=== PATIENT | female | born 1985 | race Caucasian/White ===

== ENCOUNTER 2016-10-05 19:38 | Inpatient (IN) | payer MEDICAID, OTHER ==
[2016-10-05] VITALS (8 sets, daily range): BP systolic 111–150; BP diastolic 56–95; PULSE 71–102; RESP 16–26; TEMP 98.1; O2SAT 97–100
[~2016-10-05] VITALS: Ht 172.7 cm; Wt 133.5 kg
[2016-10-05] MEDS ORDERED: SODIUM CHLOR 0.9% 1000 ML INJ 1,000 ML IV SCH (19:45)
[2016-10-05] MEDS ORDERED: SODIUM CHLORIDE 0.9% FLUSH 10 ML FLUSH IVF PRN ×2 (19:45→20:30)
[2016-10-05] MEDS ORDERED: FOSPHENYTOIN INJ 1,000 MGPE in SODIUM CHLORIDE 0.9% INJ 50 ML IV ONE (19:45)
[2016-10-05] MEDS ORDERED: LORazepam 2 MG/ML VIAL IV PUSH ONE ×2 (19:45)
[2016-10-05] MEDS ORDERED: ETOMIDATE 40 MG/20 ML VIAL ONE (19:46)
--- NOTE | 2016-10-05 20:02 | PD ---
HPI Chief Complaint: seizure Time Seen by Provider: 19:41 Travel History International Travel<30 days: No Contact w/Intl Traveler<30days: No History of Present Illness HPI This is a patient who was brought into the emergency department having had a witnessed seizure at a support group. She reportedly has a history of bipolar disorder. The people at the support group did not know her and didn't have much information about her. Patient is able to say that she takes Keppra and she thinks she missed some doses. She had 6 seizures with EMS call lasting less than a minute described as generalized tonic-clonic. She received 4 mg of IV Ativan with EMS. PFSH Past Medical History Medical History: Unable to Obtain Social History Narrative Social History unknown Tobacco Use: No Allergies-Medications (Allergen,Severity, Reaction): Coded Allergies: UNOBTAINABLE (Unverified , 10/05/16) Reported Meds & Prescriptions Reported Meds & Active Scripts Active Active Prescriptions or Reported Medications Unobtainable Review of Systems ROS Limitations: Clinical Condition Physical Exam Narrative GENERAL: Somnolent, awakens and says her name SKIN: Focused skin assessment warm and dry. HEAD: Atraumatic. Normocephalic. EYES: Pupils equal and round. No injection or drainage. ENT: Moist mucous membranes NECK: Trachea midline. CARDIOVASCULAR: Tachycardic. No murmur appreciated. RESPIRATORY: Clear to auscultation. Breath sounds equal bilaterally. GASTROINTESTINAL: Abdomen soft, non-tender, nondistended. MUSCULOSKELETAL: No obvious deformities. NEUROLOGICAL: Sleepy but awakens to answer questions. No obvious cranial nerve deficits. Moving all extremities. Data Data Last Documented VS Vital Signs Date Time Temp Pulse Resp B/P Pulse Ox O2 Delivery O2 Flow Rate FiO2 10/05/16 21:04 74 16 111/56 100 Ventilator 15 35 10/05/16 20:00 98.1 Orders Fosphenytoin Inj (Cerebyx Inj) (10/05/16 19:45) Complete Blood Count With Diff (10/05/16 19:42) Alcohol (Ethanol) (10/05/16 19:42) Phenytoin (Dilantin) (10/05/16 19:42) Drug Screen, Random Urine (10/05/16 19:42) Blood Glucose (10/05/16 19:42) Ecg Monitoring (10/05/16 19:42) Iv Access Insert/Monitor (10/05/16 19:42) Oximetry (10/05/16 19:42) Comprehensive Metabolic Panel (10/05/16 19:42) Sodium Chloride 0.9% Flush (Ns Flush) (10/05/16 19:45) Sodium Chlor 0.9% 1000 Ml Inj (Ns 1000 M (10/05/16 19:45) Urinalysis - C+S If Indicated (10/05/16 19:43) Ed Urine Pregnancytest Poc (10/05/16 19:43) Lorazepam Inj (Ativan Inj) (10/05/16 19:45) Lorazepam Inj (Ativan Inj) (10/05/16 19:45) Etomidate Inj (Amidate Inj) (10/05/16 19:46) Ct Brain W/O Iv Contrast(Rout) (10/05/16 ) Propofol 1000 Mg/100 Ml Inj (Diprivan 10 (10/05/16 20:17) Chest, Single Ap (10/05/16 20:19) Arterial Blood Gas (Abg) (10/05/16 20:19) Ng Gastric Tube Insert/Monitor (10/05/16 20:19) Urinary Catheter Insert/Apply (10/05/16 20:19) Etomidate Inj (Amidate Inj) (10/05/16 20:30) Sodium Chloride 0.9% Flush (Ns Flush) (10/05/16 20:30) Restraints Non-Violent MARY BETH.Q3H (10/05/16 20:19) Rocuronium Inj (Zemuron Inj) (10/05/16 20:30) Hydromorphone Pf Inj (Dilaudid Pf Inj) (10/05/16 20:30) Sodium Chlor 0.9% 1000 Ml Inj (Ns 1000 M (10/05/16 20:30) Resp Ventilation- Volume (10/05/16 ) Midazolam 100 Mg/Ml Inj (Versed 100 Mg/M (10/05/16 21:15) Midazolam 100 Mg/Ml Inj (Versed 100 Mg/M (10/05/16 21:15) Urine Culture (10/05/16 20:40) Ceftriaxone Inj (Rocephin Inj) (10/05/16 21:30) Levetiracetam (10/05/16 21:23) Admit Order (Ed Use Only) (10/05/16 21:25) Labs Laboratory Tests Test 10/05/16 10/05/16 14:50 20:40 White Blood Count 12.2 TH/MM3 Red Blood Count 4.52 MIL/MM3 Hemoglobin 13.3 GM/DL Hematocrit 39.8 % Mean Corpuscular Volume 88.0 FL Mean Corpuscular Hemoglobin 29.3 PG Mean Corpuscular Hemoglobin 33.3 % Concent Red Cell Distribution Width 13.8 % Platelet Count 342 TH/MM3 Mean Platelet Volume 9.7 FL Neutrophils (%) (Auto) 66.3 % Lymphocytes (%) (Auto) 27.3 % Monocytes (%) (Auto) 4.9 % Eosinophils (%) (Auto) 0.7 % Basophils (%) (Auto) 0.8 % Neutrophils # (Auto) 8.1 TH/MM3 Lymphocytes # (Auto) 3.3 TH/MM3 Monocytes # (Auto) 0.6 TH/MM3 Eosinophils # (Auto) 0.1 TH/MM3 Basophils # (Auto) 0.1 TH/MM3 CBC Comment DIFF FINAL Differential Comment Sodium Level 140 MEQ/L Potassium Level 3.8 MEQ/L Chloride Level 109 MEQ/L Carbon Dioxide Level 22.8 MEQ/L Anion Gap 8 MEQ/L Blood Urea Nitrogen 13 MG/DL Creatinine 0.77 MG/DL Estimat Glomerular Filtration 65 ML/MIN Rate Random Glucose 87 MG/DL Calcium Level 7.7 MG/DL Total Bilirubin 0.5 MG/DL Aspartate Amino Transf 27 U/L (AST/SGOT) Alanine Aminotransferase 21 U/L (ALT/SGPT) Alkaline Phosphatase 73 U/L Total Protein 7.4 GM/DL Albumin 3.4 GM/DL Phenytoin (Dilantin) Level 0.9 MCG/ML Ethyl Alcohol Level LESS THAN 3 MG/DL Urine Color YELLOW Urine Turbidity HAZY Urine pH 6.5 Urine Specific [place] 1.023 Urine Protein TRACE mg/dL Urine Glucose (UA) NEG mg/dL Urine Ketones NEG mg/dL Urine Occult Blood NEG Urine Nitrite POS Urine Bilirubin NEG Urine Urobilinogen LESS THAN 2.0 MG/DL Urine Leukocyte Esterase SMALL Urine RBC LESS THAN 1 /hpf Urine WBC 5 /hpf Urine Squamous Epithelial 1 /hpf Cells Urine Bacteria MANY /hpf Urine Mucus MOD /lpf Microscopic Urinalysis Comment CATH-CULTURE IND Blood Gas Puncture Site RT RADIAL Blood Gas Patient Temperature 98.6 Blood Gas HCO3 22 mmol/L Blood Gas Base Excess -1.7 mmol/L Blood Gas Oxygen Saturation 98 % Arterial Blood pH 7.44 Arterial Blood Partial 33 mmHg Pressure CO2 Arterial Blood Partial 172 mmHG Pressure O2 Arterial Blood Oxygen Content 16.8 Vol % Arterial Blood 0.9 % Carboxyhemoglobin Arterial Blood Methemoglobin 0.7 % Blood Gas Hemoglobin 12.0 G/DL Oxygen Delivery Device VENTILATOR Blood Gas Ventilator Setting VAC16/500/PEEP5 Blood Gas Inspired Oxygen 50 % Urine Opiates Screen POS Urine Barbiturates Screen NEG Urine Amphetamines Screen NEG Urine Benzodiazepines Screen NEG Urine Cocaine Screen NEG Urine Cannabinoids Screen NEG MDM Medical Decision Making Medical Screen Exam Complete: Yes Emergency Medical Condition: Yes Interpretation(s) afebrile, tachycardic, tachypneic, hypertensive mild leukocytosis electrolytes are reassuring drug screen positive for opiates abg: reassuring urinalysis: urinary tract infection Differential Diagnosis Seizure, status epilepticus, alcohol withdrawal, delirium tremens, electrolyte abnormality Narrative Course This is a patient who presents to the emergency department having had multiple seizures with EMS. Upon arrival she continued to seize in the emergency department. She was given 8 mg total of IV Ativan. She was given a gram of fosphenytoin. She continued to seize so she was intubated and started on propofol. Despite propofol she continued to have intermittent seizures. I spoke to Dr. West who was on-call for neurology who recommended starting Versed. Patient will be admitted to the [facility] for further management. Critical Care Narrative Aggregate critical care time was 50 minutes. Time to perform other separately billable procedures was not included in the critical care time. My time did not include minutes spent treating any other patients simultaneously or on activities that did not directly contribute to the patient's treatment. The services I provided to this patient were to treat and/or prevent clinically significant deterioration that could result in: disability, I provided critical care services requiring my management, as noted below: Chart data review, documentation time, medication orders and management, vital sign assessments/reviewing monitor data, ordering and reviewing lab tests, ordering and interpreting/reviewing x-rays and diagnostic studies, care of the patient and discussion of the patient with the admitting physicians. Procedures Procedure Narrative After the risks and benefits were discussed the following procedure was performed: INTUBATION: The patient was put in optimal position for the procedure. Rapid sequence intubation was initiated by me using 20 milligrams of etomidate IV and 50 milligrams of rocuronium IV. The patient was intubated with a 7.0 cuffed endotracheal tube. Tube placement was confirmed by visualization of the tube and balloon passing through the cords, capnometry and subsequent chest x-ray. Breath sounds were equal and well aerated bilaterally postintubation. No breath sounds over stomach. Patient tolerated procedure well. Physician Communication Physician Communication Discussed with Dr. West and Dr. Crowe Diagnosis Primary Impression: Status epilepticus Admitting Information Admitting Physician Requests: Admit Scripts Unable to Obtain Active Prescriptions or Reported Meds Madie Jack MD Oct 05, 2016 20:02
[2016-10-05 20:06] LABS: AUTOMATED NEUTROPHIL # 8.1 TH/MM3 (1.8-7.7); BASOPHIL # 0.1 TH/MM3 (0-0.2); BASOPHIL % 0.8 % (0.0-2.0); EOSINOPHIL # 0.1 TH/MM3 (0-0.4); EOSINOPHIL % 0.7 % (0.0-4.0); HEMATOCRIT 39.8 % (35.0-46.0); HEMO FLAGS DIFF FINAL; LYMPH % 27.3 % (9.0-44.0); LYMPHOCYTE # 3.3 TH/MM3 (1.0-4.8); MEAN CORPUSCULAR HEMOGLOBIN 29.3 PG (27.0-34.0); MEAN CORPUSCULAR HGB CONC 33.3 % (32.0-36.0); MONO % 4.9 % (0.0-8.0); NEUT % 66.3 % (16.0-70.0); PLATELET COUNT 342 TH/MM3 (150-450); RED BLOOD COUNT 4.52 MIL/MM3 (4.00-5.30); RED CELL DISTRIBUTION WIDTH 13.8 % (11.6-17.2); WHITE BLOOD COUNT 12.2 TH/MM3 (4.0-11.0)
[2016-10-05] MEDS ORDERED: PROPOFOL 1000 MG/100 ML INJ 100 ML ONE (20:17)
[2016-10-05 20:23] LABS: ALT (GPT) 21 U/L (10-53)
[2016-10-05 20:26] LABS: ALKALINE PHOSPHATASE 73 U/L (45-117); TOTAL BILIRUBIN ADULT 0.5 MG/DL (0.2-1.0)
[2016-10-05 20:28] LABS: ANION GAP 8 MEQ/L (5-15); AST (GOT) 27 U/L (15-37); BICARBONATE 22.8 MEQ/L (21.0-32.0); BLOOD UREA NITROGEN 13 MG/DL (7-18); CHLORIDE 109 MEQ/L (98-107); GLOMERULAR FILTRATION RATE 65 ML/MIN (>89); SODIUM (NA) 140 MEQ/L (136-145)
[2016-10-05 20:29] LABS: POTASSIUM 3.8 MEQ/L (3.5-5.1)
[2016-10-05] MEDS ORDERED: ETOMIDATE 20 MG/10 ML VIAL IVP ONE (20:30)
[2016-10-05] MEDS ORDERED: HYDROmorphone HCL PF 1 MG/ML VIAL IV PUSH ONE (20:30)
[2016-10-05] MEDS ORDERED: ROCURONIUM INJ 50 MG/5 ML VIAL IV ONE (20:30)
[2016-10-05] MEDS ORDERED: SODIUM CHLOR 0.9% 1000 ML INJ 1,000 ML IV ONE (20:30)
--- NOTE | 2016-10-05 20:50 | RADRPT ---
EXAM DATE/TIME: 10/05/2016 20:24 [facility] COMPARISON: No previous studies available for comparison. INDICATIONS : Post intubation. MEDICAL HISTORY : None. SURGICAL HISTORY : None. ENCOUNTER: Initial ACUITY: 1 day PAIN SCORE: Non-responsive. LOCATION: Bilateral chest FINDINGS: ET tube nasogastric tube are in good position. The lungs are clear. The heart is minimally enlarged. The pulmonary vascularity is normal. There is n o evidence for infiltrate or failure. The portion of the bony skeleton visualized is unremarkable. CONCLUSION: ET tube in good position without significant failure. Board Certified Radiologist. This report was verified electronically.
[2016-10-05 20:56] LABS: BLOOD GAS BASE EXCESS -1.7 mmol/L (-2-2); BLOOD GAS CARBOXYHEMOGLOBIN 0.9 % (0-4); BLOOD GAS HCO3 22 mmol/L (22-26); BLOOD GAS METHEMOGLOBIN 0.7 % (0-2); BLOOD GAS O2 HGB SATURATION 98 % (90-100); BLOOD GAS OXYGEN CONTENT 16.8 Vol % (12.0-20.0); BLOOD GAS PCO2 33 mmHg (38-42); BLOOD GAS PO2 172 mmHG (61-120); CRITICAL VALUE NO; DRAW SITE RT RADIAL; FIO2 50 %; NUMBER OF ARTERIAL PUNCTURES 1; OXYGEN DEVICE VENTILATOR; STAT YES; TEMP CORR TO 98.6; ULNAR PULSE PRESENT; VENT SETTINGS VAC16/500/PEEP5
[2016-10-05 21:09] LABS: BACTERIA, URINE MANY /hpf; BLOOD, URINE NEG (NEG); GLUCOSE,URINE NEG (NEG); KETONE, URINE NEG (NEG); MUCUS URINE MOD /lpf (OCC); PH, URINE 6.5 (5.0-8.5); SQUAMOUS EPITHELIAL CELL URINE 1 /hpf (0-5); URINE COLOR YELLOW (YELLW/STRAW)
[2016-10-05 21:13] LABS: AMPHETAMINE, URINE NEG (NEG); BARBITURATES, URINE NEG (NEG); COCAINE, URINE NEG (NEG)
[2016-10-05] MEDS ORDERED: MIDAZOLAM 100 MG/ML INJ 100 ML ONE (21:15)
[2016-10-05] MEDS ORDERED: MIDAZOLAM 100 MG/ML INJ 100 ML IV SCH (21:15)
[2016-10-05 21:16] LABS: COMMENT (UR) CATH-CULTURE IND; CULTURE IF INDICATED CATH CULTURE IND; NITRITE,URINE POS (NEG)
[2016-10-05] MEDS ORDERED: cefTRIAXone INJ 1,000 MG in SODIUM CHLORIDE 0.9% INJ 100 ML IV ONE (21:30)
[2016-10-05] MEDS ORDERED: MIDAZOLAM HCL 5 MG/ML VIAL (1 ML) ONE (21:57)
--- NOTE | 2016-10-05 22:21 | EKG ---
Date Performed: 10/05/2016 Time Performed: 19:43:31 PTAGE: 89 years EKG: SINUS TACHYCARDIA ABNORMAL RHYTHM ECG NO PREVIOUS TRACING DOCTOR: Sebas Caba Interpretating Date/Time 10/05/2016 22:21:18
[2016-10-05] MEDS ORDERED: CHLORHEXIDINE GLUCONATE 2 % 1 PACK (2 CLOTHS) TOP PRN (22:30)
[2016-10-05] MEDS ORDERED: BISACODYL 10 MG SUPP RECTAL PRN (22:30)
[2016-10-05] MEDS ORDERED: MIDAZOLAM HCL 2 MG/2 ML VIAL IV PUSH ONE (22:30)
[2016-10-05] MEDS ORDERED: fentaNYL DRIP 250 ML IV SCH (22:30)
[2016-10-05] MEDS ORDERED: MIDAZOLAM HCL 2 MG/2 ML VIAL IV PRN (22:30)
[2016-10-05] MEDS ORDERED: RESP: ALBUTEROL 2.5 MG/IPRATROPIUM 0.5 MG NEB (PRN) INH (22:30)
[2016-10-05] MEDS ORDERED: ONDANSETRON HCL 4 MG/2 ML VIAL IV PRN (22:30)
[2016-10-05] MEDS ORDERED: PROCHLORPERAZINE 25 MG SUPP RECTAL PRN (22:30)
[2016-10-05] MEDS ORDERED: MISCELLANEOUS NURSING INFORMATION XX SCH (22:30)
[2016-10-05] MEDS ORDERED: LACTULOSE SYRUP 20 GM/30 ML CUP PO PRN (22:30)
[2016-10-05] MEDS ORDERED: SENNOSIDES 8.6 MG TAB PO PRN (22:30)
[2016-10-05] MEDS ORDERED: ACETAMINOPHEN 325 MG TAB PO PRN (22:30)
[2016-10-05] MEDS ORDERED: METOCLOPRAMIDE HCL 10 MG/2 ML VIAL IV PRN (22:30)
[2016-10-05] MEDS ORDERED: MAGNESIUM HYDROXIDE SUSP 30 ML CUP PO PRN (22:30)
[2016-10-05] MEDS ORDERED: SODIUM CHLORIDE 0.9% FLUSH 10 ML FLUSH PRN (22:30)
--- NOTE | 2016-10-05 22:36 | RADRPT ---
EXAM DATE/TIME: 10/05/2016 22:13 [facility] COMPARISON: CHEST SINGLE AP, October 05, 2016, 20:24. INDICATIONS : Central line placement MEDICAL HISTORY : Unobtainable SURGICAL HISTORY : Unobtainable ENCOUNTER: Initial ACUITY: 1 day PAIN SCORE: Non-responsive. LOCATION: Bilateral chest FINDINGS: Support apparatus including central line in good position. The central line does appear to be kinked at the clavicle. Lungs are clear. There is no pneumothorax. CONCLUSION: Line in good position without pneumothorax. Line may be kinked at the clavicle. José Luis Guzman MD FACR on October 05, 2016 at 22:33 Board Certified Radiologist. This report was verified electronically.
[2016-10-05] MEDS: ENOXAPARIN SODIUM 40 MG/0.4 ML SYRINGE SQ SCH (23:35)
[2016-10-05] MEDS: PROPOFOL 1000 MG/100 ML INJ 100 ML IV SCH (23:35)
[2016-10-05] MEDS: SODIUM CHLOR 0.9% 1000 ML INJ 1,000 ML IV SCH (23:35)
[2016-10-06] VITALS (29 sets, daily range): BP systolic 119–154; BP diastolic 63–88; PULSE 58–85; RESP 16–23; TEMP 96.5–98.4; O2SAT 98–100
[2016-10-06] MEDS: levETIRAcetam INJ 500 MG in SODIUM CHLORIDE 0.9% INJ 100 ML IV SCH ×5 (00:01→23:05)
[2016-10-06] MEDS: FOSPHENYTOIN INJ 100 MGPE in SODIUM CHLORIDE 0.9% INJ 50 ML IV SCH ×3 (00:01→16:16)
--- NOTE | 2016-10-06 00:38 | HHI.HP ---
HPI Service Critical Care Medicine Primary Care Physician Unknown Admission Diagnosis status epilepticus Diagnosis: Travel History International Travel<30 Days: No Contact w/Intl Traveler <30 Da: No Traveled to Known Affected Are: No History of Present Illness Young female patient who was brought into the emergency department having had a witnessed seizure at a support group. 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 The people at the support group did not know her and didn't have much information about her. Patient was able to say that she has been taking Keppra and she thought she has missed some doses. She had 6 seizures with EMS call lasting less than a minute described as generalized tonic -clonic. She received 4 mg of IV Ativan with EMS. She had another seizure- like episodes in the emergency department and was intubated by ED attending for an airway protection. Review of Systems ROS Unobtainable patient is sedated and intubated Past Family Social History Allergies: Coded Allergies: UNOBTAINABLE (Unverified , 10/05/16) Past Medical History Bipolar disorder Pseudoseizures Past Surgical History Unobtainable Reported Medications Reported Meds & Active Scripts Active Active Prescriptions or Reported Medications Unobtainable Active Ordered Medications Current Medications Medications (Trade) Dose Ordered Sig/David Route PRN Reason Start Time Stop Time Status Last Admin Dose Admin Fosphenytoin Sodium 100 mgpe 100 mgpe Q8HR IV 10/05/16 22:30 10/06/16 00:00 Levetriacetam 500 mg/Sodium Chloride 105 ml @ 420 mls/hr Q6HR IV 10/06/16 00:00 10/06/16 00:01 Sodium Chloride (NS 1000 ml Inj) 1,000 ml @ 124 mls/hr Q8H4M IV 10/05/16 22:26 10/05/16 23:35 Sodium Chloride (NS Flush) 2 ml UNSCH PRN .XX FLUSH AFTER USING IV ACCESS 10/05/16 22:30 Sodium Chloride (NS Flush) 2 ml BID .XX 10/06/16 09:00 Acetaminophen (Tylenol) 650 mg Q6H PRN PO PAIN 1-10 AND/OR FEVER >101F 10/05/16 22:30 Famotidine (Pepcid) 20 mg Q12HR PO 10/06/16 09:00 Midazolam HCl (Versed Inj) 2 mg Q1H PRN IV SEDATION 10/05/16 22:30 Ondansetron HCl (Zofran Inj) 4 mg Q6H PRN IV NAUSEA OR VOMITING 10/05/16 22:30 Metoclopramide HCl (Reglan Inj) 10 mg Q6H PRN IV NAUSEA OR VOMITING 10/05/16 22:30 Prochlorperazine (Compazine Supp) 25 mg Q12H PRN RECTAL NAUSEA OR VOMITING 10/05/16 22:30 Enoxaparin Sodium (Lovenox Inj) 40 mg Q24H SQ 10/05/16 23:00 10/05/16 23:35 Miscellaneous Information 1 Q361D XX 10/05/16 22:30 Chlorhexidine Gluconate (Chlorhexidine 2% Cloth) 3 pack Taper DAILY@04 TOP 10/06/16 04:00 10/02/17 03:59 Chlorhexidine Gluconate (Chlorhexidine 2% Cloth) 3 pack UNSCH PRN TOP HYGIENIC CARE 10/05/16 22:30 Senna/Docusate Sodium (Micaela-Colace) 1 tab BID PO 10/06/16 09:00 Magnesium Hydroxide (Milk Of Magnesia Liq) 30 ml Q12H PRN PO MILD - MODERATE CONSTIPATION 10/05/16 22:30 Sennosides (Senokot) 17.2 mg Q12H PRN PO MODERATE - SEVERE CONSTIPATION 10/05/16 22:30 Bisacodyl (Dulcolax Supp) 10 mg DAILY PRN RECTAL SEVERE CONSITIPATION 10/05/16 22:30 Lactulose 30 ml 30 ml DAILY PRN PO SEVERE CONSITIPATION 10/05/16 22:30 Propofol 100 ml @ 0 mls/hr TITRATE IV 10/05/16 22:30 10/05/16 23:35 Midazolam HCl 100 ml @ 0 mls/hr TITRATE IV 10/05/16 22:30 Fentanyl Citrate 250 ml @ 0 mls/hr TITRATE IV 10/05/16 22:30 Fosphenytoin Sodium/Sodium Chloride (Cerebyx Inj/NS Inj) 52 ml @ 208 mls/hr Q8H IV 10/06/16 00:00 10/06/16 00:01 Family History Unobtainable Social History Unobtainable Physical Exam Vital Signs Vital Signs Date Time Temp Pulse Resp B/P Pulse Ox O2 Delivery O2 Flow Rate FiO2 10/05/16 23:00 86 16 132/85 100 Auto-Vent 35 10/05/16 21:48 71 16 134/72 99 Ventilator 15 30 10/05/16 21:04 74 16 111/56 100 Ventilator 15 35 10/05/16 20:46 82 16 100 Auto-Vent 100 10/05/16 20:31 100 Ventilator 35 10/05/16 20:28 35 10/05/16 20:27 101 16 150/90 100 Ventilator 35 10/05/16 20:10 100 50 10/05/16 20:00 98.1 73 20 145/83 97 Nasal Cannula 3 10/05/16 19:40 98.1 102 26 148/95 100 Physical Exam GENERAL: Obese well-developed patient. SKIN: Warm and dry. HEAD: Normocephalic. EYES: No scleral icterus. No injection or drainage. NECK: Supple, trachea midline. No JVD or lymphadenopathy. CARDIOVASCULAR: Regular rate and rhythm without murmurs, gallops, or rubs. RESPIRATORY: Breath sounds equal bilaterally. No accessory muscle use. GASTROINTESTINAL: Abdomen soft, non-tender, nondistended. MUSCULOSKELETAL: No cyanosis, or edema. BACK: Nontender without obvious deformity. No CVA tenderness. EXTREMITIES: No clubbing cyanosis or edema Laboratory Laboratory Tests Test 10/05/16 10/05/16 14:50 20:40 White Blood Count 12.2 Red Blood Count 4.52 Hemoglobin 13.3 Hematocrit 39.8 Mean Corpuscular Volume 88.0 Mean Corpuscular Hemoglobin 29.3 Mean Corpuscular Hemoglobin 33.3 Concent Red Cell Distribution Width 13.8 Platelet Count 342 Mean Platelet Volume 9.7 Neutrophils (%) (Auto) 66.3 Lymphocytes (%) (Auto) 27.3 Monocytes (%) (Auto) 4.9 Eosinophils (%) (Auto) 0.7 Basophils (%) (Auto) 0.8 Neutrophils # (Auto) 8.1 Lymphocytes # (Auto) 3.3 Monocytes # (Auto) 0.6 Eosinophils # (Auto) 0.1 Basophils # (Auto) 0.1 CBC Comment DIFF FINAL Differential Comment Sodium Level 140 Potassium Level 3.8 Chloride Level 109 Carbon Dioxide Level 22.8 Anion Gap 8 Blood Urea Nitrogen 13 Creatinine 0.77 Estimat Glomerular Filtration 65 Rate Random Glucose 87 Calcium Level 7.7 Total Bilirubin 0.5 Aspartate Amino Transf 27 (AST/SGOT) Alanine Aminotransferase 21 (ALT/SGPT) Alkaline Phosphatase 73 Total Protein 7.4 Albumin 3.4 Phenytoin (Dilantin) Level 0.9 Ethyl Alcohol Level LESS THAN 3 Urine Color YELLOW Urine Turbidity HAZY Urine pH 6.5 Urine Specific [place] 1.023 Urine Protein TRACE Urine Glucose (UA) NEG Urine Ketones NEG Urine Occult Blood NEG Urine Nitrite POS Urine Bilirubin NEG Urine Urobilinogen LESS THAN 2.0 Urine Leukocyte Esterase SMALL Urine RBC LESS THAN 1 Urine WBC 5 Urine Squamous Epithelial 1 Cells Urine Bacteria MANY Urine Mucus MOD Microscopic Urinalysis Comment CATH-CULTURE IND Blood Gas Puncture Site RT RADIAL Blood Gas Patient Temperature 98.6 Blood Gas HCO3 22 Blood Gas Base Excess -1.7 Blood Gas Oxygen Saturation 98 Arterial Blood pH 7.44 Arterial Blood Partial 33 Pressure CO2 Arterial Blood Partial 172 Pressure O2 Arterial Blood Oxygen Content 16.8 Arterial Blood 0.9 Carboxyhemoglobin Arterial Blood Methemoglobin 0.7 Blood Gas Hemoglobin 12.0 Oxygen Delivery Device VENTILATOR Blood Gas Ventilator Setting VAC16/500/PEEP5 Blood Gas Inspired Oxygen 50 Urine Opiates Screen POS Urine Barbiturates Screen NEG Urine Amphetamines Screen NEG Urine Benzodiazepines Screen NEG Urine Cocaine Screen NEG Urine Cannabinoids Screen NEG Date/Time Procedure Status Source Growth 10/05/16 20:40 Urine Culture Received Urine Catheterized Urine Pending Result Diagram: 10/05/16 1450 10/05/16 1450 Imaging Last 24 hours Impressions Chest X-Ray 10/05/16 2019 Signed Impressions: Service Date/Time: Wednesday, October 05, 2016 20:24 - CONCLUSION: ET tube in good position without significant failure. Board Certified Radiologist. This report was verified electronically. Assessment and Plan Assessment and Plan Respiratory failure - Intubated for an airway protection - Chest x-ray and ABG daily - Extubate if EEG negative Seizure/pseudoseizure - Patient's significant other "patient has a history of nonconvulsive disorder - EEG - Evaluation per neurology - Lactic acid and CPK - Loaded with fosphenytoin and Keppra in the ED - Ativan when necessary - Propofol DVT GI prophylaxis - Lovenox and Pepcid Critical Care: The total critical care time was 35 minutes. Time to perform other separately billable procedures was not included in the critical care time. Raimundo Crowe MD Oct 06, 2016 00:38
--- NOTE | 2016-10-06 00:39 | PD.PROCEDR ---
Procedure Note Procedure Centerline placement A time-out was completed verifying correct patient, procedure, site, positioning , and special equipment if applicable. The patient was placed in a dependent position appropriate for central line placement based on the vein to be cannulated. The patients right shoulder was prepped and draped in sterile fashion. 1% Lidocaine was used to anesthetize the surrounding skin area. A triple lumen 9-[place] Cordis catheter was introduced into the the right subclavian vein using the Seldinger technique. The catheter was threaded smoothly over the guide wire and appropriate blood return was obtained. Each lumen of the catheter was evacuated of air and flushed with sterile saline. The catheter was then sutured in place to the skin and a sterile dressing applied. Perfusion to the extremity distal to the point of catheter insertion was checked and found to be adequate. Estimated Blood Loss: 1ml The patient tolerated the procedure well and there were no complications. Raimundo Crowe MD Oct 06, 2016 00:39
--- NOTE | 2016-10-06 02:22 | RADRPT ---
EXAM DATE/TIME: 10/06/2016 01:39 [facility] COMPARISON: No previous studies available for comparison. INDICATIONS : Altered mental status. RADIATION DOSE: 48.54 CTDIvol (mGy) MEDICAL HISTORY : Non-responsive. SURGICAL HISTORY : Non-responsive. ENCOUNTER: Initial ACUITY: 1 day PAIN SCALE: Non-responsive LOCATION: cranial TECHNIQUE: Multiple contiguous axial images were obtained of the head. Using automated exposure control and adj ustment of the mA and/or kV according to patient size, radiation dose was kept as low as reasonably a chievable to obtain optimal diagnostic quality images. DICOM format image data is available electro nically for review and comparison. FINDINGS: CEREBRUM: The ventricles are normal for age. No evidence of midline shift, mass lesion, hemorrhage or acute in farction. No extra-axial fluid collections are seen. POSTERIOR FOSSA: The cerebellum and brainstem are intact. The 4th ventricle is midline. The cerebellopontine angle i s unremarkable. EXTRACRANIAL: The visualized portion of the orbits is intact. SKULL: The calvaria is intact. No evidence of skull fracture. CONCLUSION: No acute intracranial findings. Christopher Farris MD on October 06, 2016 at 2:18 Board Certified Radiologist. This report was verified electronically.
[2016-10-06 03:09] LABS: BLOOD GAS BASE EXCESS -2.4 mmol/L (-2-2); BLOOD GAS CARBOXYHEMOGLOBIN 1.2 % (0-4); BLOOD GAS HCO3 21 mmol/L (22-26); BLOOD GAS METHEMOGLOBIN 1.3 % (0-2); BLOOD GAS O2 HGB SATURATION 97 % (90-100); BLOOD GAS OXYGEN CONTENT 15.9 Vol % (12.0-20.0); BLOOD GAS PCO2 33 mmHg (38-42); BLOOD GAS PO2 177 mmHg (61-120); BLOOD GAS TOTAL HGB 11.4 G/DL (12.0-16.0); CRITICAL VALUE NO; OXYGEN DEVICE VENT; TEMP CORR TO 98.6
[2016-10-06 03:10] LABS: DRAW SITE RT RADIAL; FIO2 35 %; NUMBER OF ARTERIAL PUNCTURES 2; STAT NO; ULNAR PULSE PRESENT; VENT SETTINGS SEE COMMENTS
[2016-10-06] MEDS: CHLORHEXIDINE GLUCONATE 2 % 1 PACK (2 CLOTHS) TOP SCH (04:00)
[2016-10-06 05:30] LABS: BASOPHIL % 0.3 % (0.0-2.0); EOSINOPHIL # 0.1 TH/MM3 (0-0.4); EOSINOPHIL % 0.9 % (0.0-4.0); HEMATOCRIT 33.8 % (35.0-46.0); HEMO FLAGS DIFF FINAL; LYMPH % 23.7 % (9.0-44.0); MEAN CELL VOLUME 87.6 FL (80.0-100.0); MEAN CORPUSCULAR HEMOGLOBIN 29.3 PG (27.0-34.0); MEAN CORPUSCULAR HGB CONC 33.5 % (32.0-36.0); MONO % 5.7 % (0.0-8.0); NEUT % 69.4 % (16.0-70.0); PLATELET COUNT 265 TH/MM3 (150-450); RED BLOOD COUNT 3.86 MIL/MM3 (4.00-5.30); RED CELL DISTRIBUTION WIDTH 13.6 % (11.6-17.2); WHITE BLOOD COUNT 8.7 TH/MM3 (4.0-11.0)
[2016-10-06 05:49] LABS: ANION GAP 8 MEQ/L (5-15); AST (GOT) 14 U/L (15-37); BICARBONATE 23.2 MEQ/L (21.0-32.0); BLOOD UREA NITROGEN 11 MG/DL (7-18); CHLORIDE 110 MEQ/L (98-107); GLOMERULAR FILTRATION RATE 91 ML/MIN (>89); MAGNESIUM 1.8 MG/DL (1.5-2.5); SODIUM (NA) 141 MEQ/L (136-145)
[2016-10-06 05:53] LABS: ALKALINE PHOSPHATASE 66 U/L (45-117); ALT (GPT) 17 U/L (10-53); TOTAL BILIRUBIN ADULT 0.4 MG/DL (0.2-1.0)
[2016-10-06] MEDS: PROPOFOL 1000 MG/100 ML INJ 100 ML IV SCH ×6 (06:34→19:23)
[2016-10-06] MEDS: FOSPHENYTOIN SODIUM 100 MG PE/2 ML VIAL IV SCH ×2 (06:35)
[2016-10-06] MEDS: SODIUM CHLOR 0.9% 1000 ML INJ 1,000 ML IV SCH ×2 (06:42→15:50)
[2016-10-06] MEDS: DOCUSATE SODIUM 50 MG/SENNA 8.6 MG TAB PO SCH ×2 (07:56→23:05)
[2016-10-06] MEDS: SODIUM CHLORIDE 0.9% FLUSH 10 ML FLUSH SCH ×2 (07:56→23:07)
[2016-10-06] MEDS ORDERED: FAMOTIDINE 20 MG TAB PO SCH (09:00)
--- NOTE | 2016-10-06 09:30 | MB ---
cc: MEI BATEMAN M.D. DATE OF CONSULTATION: 10/05/2016 REASON FOR CONSULTATION Status epilepticus. HISTORY OF PRESENT ILLNESS This is a patient who has history of bipolar disorder. Apparently, does have a history of seizures which she takes Keppra. She was at a support group and had a witnessed seizure. It was felt that she may have missed some doses of Keppra. She had a total of six seizures here in the ER, she was having frequent seizures and was given 4 mg of IV Ativan with EMS with continuous seizing. She was loaded with fosphenytoin 1 gram but continued to seize. She was intubated and started on propofol. She continued to have intermittent seizures on propofol. She received 4 mg of IV Versed and then stopped seizing. Central line was not placed. NEUROLOGIC EXAMINATION VITAL SIGNS: Blood pressure 134/72, pulse 71, respirations 16, temperature is 98.1 degrees. Higher cortical function, she is sedated, nonresponsive. Cranial nerves: The pupils are 1 mm symmetric, they both react. The extraocular movements are intact. On motor exam, she does have spontaneous movement of both upper and lower extremities and does have withdrawal of both lower extremities equally. I do not see any tonic-clonic activity. She has no nystagmus. No sign of clinical seizures at the present. Reflexes symmetric. LABORATORY DATA The white count is 12,200, hemoglobin 13.3, hematocrit 39.8%, platelets 342,000. Sodium is 140, potassium 3.8, chloride 109, CO2 22.8, the BUN is 13, creatinine 0.77, GFR 65, AST 27, ALT is 21. IMPRESSION Status epilepticus, now resolved. RECOMMENDATIONS Would recommend continue the patient on propofol. I will continue her as well on maintenance Cerebyx as well as a maintenance Keppra. If she were to have any recurrent seizures would recommend starting continuous Versed drip. Will obtain an EEG in the morning as well as CT of the brain. MD BENJIE Pyle/CESAR /10:23 PM /9:23 AM
--- NOTE | 2016-10-06 13:48 | HHI.CCPN ---
Subjective Remarks/Hospital Course Young female patient who was brought into the emergency department having had a witnessed seizure at a support group. 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 The people at the support group did not know her and didn't have much information about her. Patient was able to say that she has been taking Keppra and she thought she has missed some doses. She had 6 seizures with EMS call lasting less than a minute described as generalized tonic -clonic. She received 4 mg of IV Ativan with EMS. She had another seizure- like episodes in the emergency department and was intubated by ED attending for an airway protection. Subjective 10/06 - patient did awaken not following commands. Pulled out NG tube. Neurology recommending keeping sedate overnight with repeat CT head EEG in a.m. Objective Vital Signs Date Time Temp Pulse Resp B/P Pulse Ox O2 Delivery O2 Flow Rate FiO2 10/06/16 13:25 100 35 10/06/16 08:00 68 10/06/16 04:00 96.5 16 126/77 10/06/16 01:27 Auto-Vent 10/05/16 21:48 15 Intake and Output 10/05/16 10/05/16 10/06/16 08:00 16:00 00:00 Intake Total 1000 ml Balance 1000 ml Result Diagram: 10/06/16 0445 10/06/16 0509 Other Results Microbiology Date/Time Procedure Status Source Growth 10/05/16 20:40 Urine Culture Worksheet Urine Catheterized Urine Pending Imaging Last 72 hours Impressions Chest X-Ray 10/05/162018 Signed Impressions: Service Date/Time: Wednesday, October 05, 2016 20:24 - CONCLUSION: ET tube in good position without significant failure. Board Certified Radiologist. This report was verified electronically. Head CT 10/05/16 0000 Signed Impressions: Service Date/Time: September 01:39 - CONCLUSION: No acute intracranial findings. Christopher Farris MD Chest X-Ray 10/05/16 0000 Signed Impressions: Service Date/Time: Wednesday, October 05, 2016 22:13 - CONCLUSION: Line in good position without pneumothorax. Line may be kinked at the clavicle. José Luis Guzman MD FACR Objective Remarks GENERAL: 31-year-old female, currently orotracheally intubated SKIN: Warm and dry. No rash HEAD: Normocephalic. EYES: No scleral icterus. No injection or drainage. NECK: Supple, trachea midline. No JVD or lymphadenopathy. CARDIOVASCULAR: Regular rate and rhythm with S1, S2 no S4. Without murmurs, gallops, or rubs. RESPIRATORY: Breath sounds equal bilaterally. No accessory muscle use. GASTROINTESTINAL: Abdomen soft, non-tender, nondistended. MUSCULOSKELETAL: No cyanosis, or edema. BACK: Nontender without obvious deformity. No CVA tenderness. EXTREMITIES: No clubbing cyanosis or edema Urinary Catheter: Yes Assessment to: Continue Patton insert reason: Prolonged Immobilization Vascular Central Line Catheter: Yes Assessment to: Continue Date of Insertion: Oct 06, 2016 Line: Central Venous Catheter Side: Right Location: Subclavian A/P Assessment and Plan Neuro/Psych: Psychogenic nonepileptic seizures Bipolar type I Anxiety/depression History of migraine headache CT head revealed no acute intrarenal findings Followed by Dr. West/neurology Keppra 500 IV every 6 hours and Dilantin 100 mg IV every 8 hours. Loaded with Dilantin ED. Recheck levels in AM. Follow-up CT head/EEG in a.m. per neurology's recommendations CV: Currently on normal saline at 100 cc an hour. Not requiring vasopressors and/or anti-hypertensives Resp: Acute respiratory failure secondary to AMS ACV 68153/5/35 Ventilator bundle As needed DuoNeb every 2 hours. Dyspnea Spontaneous breathing trials in a.m. GI: OG tube to LIWS Protonix for GI prophylaxis Micaela-Colace for bowel regimen : Patton catheter for accurate I's and O's in a critically ill patient Endo: Sliding-scale insulin if indicated to maintain euglycemia Follow-up on TSH Renal: Creatinine currently within normal limits Accurate I's and O's Monitor urine output Follow BMP in a.m. Heme: History of cervical cancer/endometriosis Normocytic anemia Monitor CBC daily. Follow trends ID: History of HSV History of BV Cystitis Received Rocephin in ED. We'll Start Ancef 1 G IV Every 12 Hours for 3 Days FEN: Hypokalemia Hypophosphatemia Hypo-magnesium 60 mEq KCl IV/by mouth now, 1 g Neutra-Phos by NG tube and 2 g mag sulfate IV 1 now. Recheck in AM. Currently on normal saline at 100 cc an hour MSK: PT evaluate and treat when appropriate Access - Utilize right subclavian placed 10/[address] Crowe Prophylaxis - GI - Protonix - DVT - SCD/Lovenox 30 additional minutes critical care time Stuart Sanders MD Oct 06, 2016 13:48
[2016-10-06] MEDS ORDERED: POTASSIUM CHLOR 40 MEQ PREMIX 100 ML IV ONE (14:15)
[2016-10-06] MEDS ORDERED: POTASSIUM CHLORIDE 20 MEQ PWD PACKET PO ONE (14:15)
[2016-10-06] MEDS ORDERED: POTASSIUM PHOSPHATE/SODIUM PHOSPHATE 250 MG TAB DOBHOFF ONE (14:15)
[2016-10-06] MEDS: MAGNESIUM SULFATE 1 GM PREMIX 100 ML IV SCH ×2 (14:16→16:14)
[2016-10-06] MEDS: PANTOPRAZOLE SODIUM 40 MG VIAL IV PUSH SCH (14:16)
[2016-10-06 15:14] LABS: BETA HCG QUANT LESS THAN 1 MIU/ML (0-5)
[2016-10-06] MEDS: ENOXAPARIN SODIUM 40 MG/0.4 ML SYRINGE SQ SCH (23:05)
[2016-10-06] MEDS: MIDAZOLAM 100 MG/ML INJ 100 ML IV SCH (23:32)
[2016-10-07] VITALS (23 sets, daily range): BP systolic 116–141; BP diastolic 61–87; PULSE 70–88; RESP 16–30; TEMP 96.7–99.9; O2SAT 99–100
[2016-10-07] MEDS: FOSPHENYTOIN INJ 100 MGPE in SODIUM CHLORIDE 0.9% INJ 50 ML IV SCH ×4 (00:35→23:18)
[2016-10-07] MEDS: PROPOFOL 1000 MG/100 ML INJ 100 ML IV SCH ×9 (01:29→23:38)
[2016-10-07] MEDS: SODIUM CHLOR 0.9% 1000 ML INJ 1,000 ML IV SCH ×3 (01:30→15:53)
[2016-10-07] MEDS: CHLORHEXIDINE GLUCONATE 2 % 1 PACK (2 CLOTHS) TOP SCH (04:00)
[2016-10-07 05:32] LABS: AUTOMATED NEUTROPHIL # 8.9 TH/MM3 (1.8-7.7); BASOPHIL % 0.3 % (0.0-2.0); EOSINOPHIL # 0.1 TH/MM3 (0-0.4); EOSINOPHIL % 1.1 % (0.0-4.0); HEMATOCRIT 33.7 % (35.0-46.0); HEMO FLAGS DIFF FINAL; LYMPHOCYTE # 1.6 TH/MM3 (1.0-4.8); MEAN CELL VOLUME 87.8 FL (80.0-100.0); MEAN CORPUSCULAR HEMOGLOBIN 29.4 PG (27.0-34.0); MEAN CORPUSCULAR HGB CONC 33.5 % (32.0-36.0); MONO % 5.9 % (0.0-8.0); NEUT % 78.7 % (16.0-70.0); PLATELET COUNT 273 TH/MM3 (150-450); RED BLOOD COUNT 3.83 MIL/MM3 (4.00-5.30); RED CELL DISTRIBUTION WIDTH 13.6 % (11.6-17.2); WHITE BLOOD COUNT 11.3 TH/MM3 (4.0-11.0)
[2016-10-07] MEDS: levETIRAcetam INJ 500 MG in SODIUM CHLORIDE 0.9% INJ 100 ML IV SCH ×4 (06:00→23:18)
[2016-10-07 06:17] LABS: ALKALINE PHOSPHATASE 72 U/L (45-117); ALT (GPT) 14 U/L (10-53); AMYLASE 27 U/L (25-115); ANION GAP 8 MEQ/L (5-15); AST (GOT) 12 U/L (15-37); BICARBONATE 24.9 MEQ/L (21.0-32.0); BLOOD UREA NITROGEN 3 MG/DL (7-18); CHLORIDE 110 MEQ/L (98-107); GLOMERULAR FILTRATION RATE 120 ML/MIN (>89); MAGNESIUM 2.2 MG/DL (1.5-2.5); SODIUM (NA) 143 MEQ/L (136-145); TOTAL BILIRUBIN ADULT 0.5 MG/DL (0.2-1.0)
[2016-10-07 06:27] LABS: CREATINE KINASE 51 U/L (26-192)
[2016-10-07 06:29] LABS: POTASSIUM 2.9 MEQ/L (3.5-5.1)
[2016-10-07] MEDS ORDERED: POTASSIUM PHOSPHATE INJ 15 MMOL in SODIUM CHLORIDE 0.9% INJ 150 ML IV ONE (07:00)
[2016-10-07] MEDS: POTASSIUM CHLOR 40 MEQ PREMIX 100 ML IV SCH ×2 (07:33→10:51)
[2016-10-07] MEDS: SODIUM CHLORIDE 0.9% FLUSH 10 ML FLUSH SCH ×2 (09:56→20:47)
[2016-10-07] MEDS: DOCUSATE SODIUM 50 MG/SENNA 8.6 MG TAB PO SCH ×2 (10:12→20:47)
[2016-10-07] MEDS ORDERED: DEXTROSE 50% IN WATER 50 ML SYRINGE IV PUSH ONE (12:45)
[2016-10-07] MEDS: PANTOPRAZOLE SODIUM 40 MG VIAL IV PUSH SCH (13:22)
--- NOTE | 2016-10-07 14:02 | HHI.CCPN ---
Subjective Remarks/Hospital Course 31-year-old female patient who was brought into the emergency department having had a witnessed seizure at a support group. 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 The people at the support group did not know her and didn't have much information about her. Patient was able to say that she has been taking Keppra and she thought she has missed some doses. She had 6 seizures with EMS call lasting less than a minute described as generalized tonic-clonic. She received 4 mg of IV Ativan with EMS. She had another seizure-like episodes in the emergency department and was intubated by ED attending for an airway protection. 10/06 - patient did awaken not following commands. Pulled out NG tube. Neurology recommending keeping sedate overnight with repeat CT head EEG in a.m. Subjective 10/07: Currently afebrile. On sedation vacation awake and following simple commands. EEG completed today. CT head pendingwhich will attempt extubation. Objective Vital Signs Date Time Temp Pulse Resp B/P Pulse Ox O2 Delivery O2 Flow Rate FiO2 10/07/16 12:00 35 10/07/16 12:00 80 10/07/16 12:00 99.4 17 132/70 100 10/06/16 01:27 Auto-Vent 10/05/16 21:48 15 Intake and Output 10/06/16 10/06/16 10/06/16 07:59 15:59 23:59 Intake Total 981 ml 1261 ml 1927 ml Output Total 220 ml 3000 ml 1575 ml Balance 761 ml -1739 ml 352 ml Result Diagram: 10/07/16 0510 10/07/16 0510 Other Results Microbiology Date/Time Procedure Status Source Growth 10/05/16 20:40 Urine Culture - Final Complete Urine Catheterized Urine Escherichia Coli Imaging Last 72 hours Impressions Chest X-Ray 10/05/162018 Signed Impressions: Service Date/Time: Wednesday, October 05, 2016 20:24 - CONCLUSION: ET tube in good position without significant failure. Board Certified Radiologist. This report was verified electronically. Head CT 10/05/16 0000 Signed Impressions: Service Date/Time: September 01:39 - CONCLUSION: No acute intracranial findings. Christopher Farris MD Chest X-Ray 10/05/16 0000 Signed Impressions: Service Date/Time: Wednesday, October 05, 2016 22:13 - CONCLUSION: Line in good position without pneumothorax. Line may be kinked at the clavicle. José Luis Guzman MD FACR Objective Remarks GENERAL: 31-year-old female, currently orotracheally intubated SKIN: Warm and dry. No rash HEAD: Normocephalic. EYES: No scleral icterus. No injection or drainage. NECK: Supple, trachea midline. No JVD or lymphadenopathy. CARDIOVASCULAR: Regular rate and rhythm with S1, S2 no S4. Without murmurs, gallops, or rubs. RESPIRATORY: Breath sounds equal bilaterally. No accessory muscle use. GASTROINTESTINAL: Abdomen soft, non-tender, nondistended. MUSCULOSKELETAL: No significant peripheral edema. BACK: Nontender without obvious deformity. No CVA tenderness. NEURO: Cranial nerves II through XII grossly intact. Positive gag. Positive corneal reflex. Withdrawals to pain in all 4 extremities Date of Insertion: Oct 06, 2016 Line: Central Venous Catheter Side: Right Location: Subclavian A/P Assessment and Plan Neuro/Psych: Psychogenic nonepileptic seizures Bipolar type I Anxiety/depression History of migraine headache CT head revealed no acute intrarenal findings Followed by Dr. West/neurology Keppra 500 IV every 6 hours and Dilantin 100 mg IV every 8 hours. Loaded with Dilantin ED. Recheck levels in AM 6.5. Follow-up CT head/EEG today per neurology's recommendations CV: Currently on normal saline at 100 cc an hour. Not requiring vasopressors and/or anti-hypertensives Resp: Acute respiratory failure secondary to AMS ACV 98017/5/35 Ventilator bundle As needed DuoNeb every 2 hours. Dyspnea Spontaneous breathing trials after head CT today GI: Hypoalbuminemia OG tube to LIWS. Initiate tube feedings on extubated Protonix for GI prophylaxis Micaela-Colace for bowel regimen : Patton catheter for accurate I's and O's in a critically ill patient Endo: Sliding-scale insulin if indicated to maintain euglycemia Follow-up on TSH was within normal limits Renal: Creatinine currently within normal limits Accurate I's and O's Monitor urine output Follow BMP in a.m. Heme: History of cervical cancer/endometriosis Normocytic anemia Monitor CBC daily. Follow trends ID: History of HSV History of BV Cystitis/Escherichia coli Received Rocephin in ED. We'll Start Ancef 1 G IV Every 12 Hours for 3 Days a currently day #23 FEN: Hypokalemia Hypo-magnesium 80 mEq KCl IV/1 now, 1 g Neutra-Phos by NG tube. Recheck in AM. Currently on normal saline at 100 cc an hour MSK: PT evaluate and treat when appropriate Access - Utilize right subclavian placed 10/[address] Crowe Prophylaxis - GI - Protonix - DVT - SCD/Lovenox 30 additional minutes critical care time Stuart Sanders MD Oct 07, 2016 14:02
--- NOTE | 2016-10-07 14:42 | MG ---
cc: WYATT ANDRADE Lab No: [id number] Date: 10/07/16 Age: 31 Sex: F Race: On Diprivan. Breakthrough seizures, pseudoseizures, Dilantin. A diffuse 15 Hz, 60 microvolt rhythm is noted with some diffuse delta slowing also. No epileptiform or seizure activity is noted. Hyperventilation not performed. Photic stimulation is performed without significant posterior driving. IMPRESSION A generally unremarkable EEG. Beyond medication effect I do not see any focal abnormalities. No seizure activity is seen. Diffuse slowing seen at times, likely medication effect. MD LYDIA NewmanM/ANKITA /2:28 PM /2:41 PM
[2016-10-07] MEDS: MIDAZOLAM 100 MG/ML INJ 100 ML IV SCH (15:53)
[2016-10-07] MEDS ORDERED: DEXTROSE 50% IN WATER 50 ML VIAL(D50) IV ONE (19:00)
[2016-10-07] MEDS: ENOXAPARIN SODIUM 40 MG/0.4 ML SYRINGE SQ SCH (23:17)
[2016-10-08] VITALS (16 sets, daily range): BP systolic 123–137; BP diastolic 69–92; PULSE 62–112; RESP 11–21; TEMP 97.5–100; O2SAT 92–100
[2016-10-08] MEDS: SODIUM CHLOR 0.9% 1000 ML INJ 1,000 ML IV SCH ×2 (00:18→12:40)
[2016-10-08] MEDS: PROPOFOL 1000 MG/100 ML INJ 100 ML IV SCH ×2 (02:28→06:00)
[2016-10-08] MEDS: CHLORHEXIDINE GLUCONATE 2 % 1 PACK (2 CLOTHS) TOP SCH (04:00)
[2016-10-08 05:27] LABS: HEMATOCRIT 31.8 % (35.0-46.0); MEAN CELL VOLUME 88.1 FL (80.0-100.0); MEAN CORPUSCULAR HEMOGLOBIN 30.1 PG (27.0-34.0); MEAN CORPUSCULAR HGB CONC 34.2 % (32.0-36.0); PLATELET COUNT 242 TH/MM3 (150-450); RED BLOOD COUNT 3.61 MIL/MM3 (4.00-5.30); RED CELL DISTRIBUTION WIDTH 13.7 % (11.6-17.2); REVIEW FLAG FINAL; WHITE BLOOD COUNT 10.9 TH/MM3 (4.0-11.0)
[2016-10-08 05:49] LABS: BICARBONATE 25.8 MEQ/L (21.0-32.0); MAGNESIUM 1.8 MG/DL (1.5-2.5)
--- NOTE | 2016-10-08 06:03 | RADRPT ---
EXAM DATE/TIME: 10/08/2016 05:31 [facility] COMPARISON: CT BRAIN W/O CONTRAST, October 06, 2016, 1:39. INDICATIONS : Seizures. RADIATION DOSE: 52.13 CTDIvol (mGy) MEDICAL HISTORY : Non-responsive. SURGICAL HISTORY : Non-responsive. ENCOUNTER: Subsequent ACUITY: 2 days PAIN SCALE: Non-responsive LOCATION: cranial TECHNIQUE: Multiple contiguous axial images were obtained of the head. Using automated exposure control and adj ustment of the mA and/or kV according to patient size, radiation dose was kept as low as reasonably a chievable to obtain optimal diagnostic quality images. DICOM format image data is available electro nically for review and comparison. FINDINGS: CEREBRUM: The ventricles are normal for age. No evidence of midline shift, mass lesion, hemorrhage or acute in farction. No extra-axial fluid collections are seen. POSTERIOR FOSSA: The cerebellum and brainstem are intact. The 4th ventricle is midline. The cerebellopontine angle i s unremarkable. EXTRACRANIAL: The visualized portion of the orbits is intact. SKULL: The calvaria is intact. No evidence of skull fracture. CONCLUSION: Normal examination for a patient of this age. Mike Shay MD on October 08, 2016 at 6:00 Board Certified Radiologist. This report was verified electronically.
[2016-10-08] MEDS: levETIRAcetam INJ 500 MG in SODIUM CHLORIDE 0.9% INJ 100 ML IV SCH ×4 (06:07→23:58)
[2016-10-08] MEDS ORDERED: MAGNESIUM SULFATE INJ 4 GM in SODIUM CHLORIDE 0.9% INJ 92 ML IV PRN (06:45)
[2016-10-08] MEDS ORDERED: POTASSIUM PHOSPHATE INJ 30 MMOL in SODIUM CHLOR 0.9% 250 ML INJ 250 ML IV PRN (06:45)
[2016-10-08] MEDS ORDERED: POTASSIUM CHLOR 20 MEQ PREMIX 100 ML IV PRN ×2 (06:45)
[2016-10-08] MEDS ORDERED: POTASSIUM PHOSPHATE MONOBASIC 500 MG TAB PO PRN (06:45)
[2016-10-08] MEDS ORDERED: SODIUM PHOSPHATE INJ 30 MMOL in SODIUM CHLOR 0.9% 250 ML INJ 240 ML IV PRN (06:45)
[2016-10-08] MEDS ORDERED: MAGNESIUM OXIDE 400 MG TAB PO PRN (06:45)
[2016-10-08] MEDS ORDERED: POTASSIUM PHOSPHATE MONOBASIC 500 MG TAB PO/TUBE PRN (06:45)
[2016-10-08] MEDS ORDERED: POTASSIUM CHLOR 40 MEQ PREMIX 100 ML IV PRN ×2 (06:45)
[2016-10-08] MEDS ORDERED: MAGNESIUM SULFATE INJ 2 GM in SODIUM CHLORIDE 0.9% INJ 96 ML IV PRN (06:45)
[2016-10-08] MEDS ORDERED: POTASSIUM CHLORIDE 25 MEQ EFFERVESCENT TAB PO PRN (06:45)
[2016-10-08] MEDS: DOCUSATE SODIUM 50 MG/SENNA 8.6 MG TAB PO SCH ×2 (07:57→20:32)
[2016-10-08] MEDS: FOSPHENYTOIN INJ 100 MGPE in SODIUM CHLORIDE 0.9% INJ 50 ML IV SCH ×3 (07:57→23:59)
--- NOTE | 2016-10-08 08:08 | HHI.CCPN ---
Subjective Remarks/Hospital Course 31-year-old female patient who was brought into the emergency department having had a witnessed seizure at a support group. 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 The people at the support group did not know her and didn't have much information about her. Patient was able to say that she has been taking Keppra and she thought she has missed some doses. She had 6 seizures with EMS call lasting less than a minute described as generalized tonic-clonic. She received 4 mg of IV Ativan with EMS. She had another seizure-like episodes in the emergency department and was intubated by ED attending for an airway protection. 10/06 - patient did awaken not following commands. Pulled out NG tube. Neurology recommending keeping sedate overnight with repeat CT head EEG in a.m. 10/07: Currently afebrile. On sedation vacation awake and following simple commands. EEG completed today. CT head pendingwhich will attempt extubation. Subjective 10/08: Afebrile. Negative CT head. EEG negative. More awake and alert. We' ll attempt extubation today. Objective Vital Signs Date Time Temp Pulse Resp B/P Pulse Ox O2 Delivery O2 Flow Rate FiO2 10/08/16 07:10 100 35 10/08/16 06:00 66 10/08/16 05:20 8.00 10/08/16 04:00 98.1 16 133/79 10/06/16 01:27 Auto-Vent Intake and Output 10/07/16 10/07/16 10/08/16 08:00 16:00 00:00 Intake Total 1152 ml 2104 ml 1346 ml Output Total 1450 ml 1325 ml 1975 ml Balance -298 ml 779 ml -629 ml Result Diagram: 10/08/16 0505 10/08/16 0505 Other Results Microbiology Date/Time Procedure Status Source Growth 10/05/16 20:40 Urine Culture - Final Complete Urine Catheterized Urine Escherichia Coli Imaging Last [address] 10/07/16 0600 Signed Impressions: Service Date/Time: Saturday, October 08, 2016 05:31 - CONCLUSION: Normal examination for a patient of this age. Mike Shay MD Chest X-Ray 10/05/16 2019 Signed Impressions: Service Date/Time: Wednesday, October 05, 2016 20:24 - CONCLUSION: ET tube in good position without significant failure. Board Certified Radiologist. This report was verified electronically. Objective Remarks GENERAL: 31-year-old female, currently orotracheally intubated SKIN: Warm and dry. No rash HEAD: Normocephalic. EYES: No scleral icterus. No injection or drainage. NECK: Supple, trachea midline. No JVD or lymphadenopathy. CARDIOVASCULAR: Regular rate and rhythm with S1, S2 no S4. Without murmurs, gallops, or rubs. RESPIRATORY: Breath sounds equal bilaterally. No accessory muscle use. GASTROINTESTINAL: Abdomen soft, non-tender, nondistended. MUSCULOSKELETAL: No significant peripheral edema. BACK: Nontender without obvious deformity. No CVA tenderness. NEURO: Cranial nerves II through XII grossly intact. Positive gag. Positive corneal reflex. Withdrawals to pain in all 4 extremities Vascular Central Line Catheter: Yes Assessment to: Continue Date of Insertion: Oct 06, 2016 Line: Central Venous Catheter Side: Right Location: Subclavian A/P Assessment and Plan Neuro/Psych: Psychogenic nonepileptic seizures Bipolar type I Anxiety/depression History of migraine headache CT head revealed no acute intrarenal findings Followed by Dr. West/neurology Keppra 500 IV every 6 hours and Dilantin 100 mg IV every 8 hours. Loaded with Dilantin ED. Recheck levels in AM 6.6. Follow-up CT head revealed no acute intracranial findings/EEG 10/07 revealed no epileptiform activity. Generalized slowing likely medication induced Per neurology's recommendations CV: Currently on normal saline at 100 cc an hour. Not requiring vasopressors and/or anti-hypertensives Resp: Acute respiratory failure secondary to AMS ACV 42917/5/35 Ventilator bundle As needed DuoNeb every 2 hours. Dyspnea Spontaneous breathing trials after head CT today GI: Hypoalbuminemia OG tube to LIWS. Initiate tube feedings if not extubated today Protonix for GI prophylaxis Micaela-Colace for bowel regimen : Patton catheter for accurate I's and O's in a critically ill patient Endo: Sliding-scale insulin if indicated to maintain euglycemia Follow-up on TSH was within normal limits Renal: Creatinine currently within normal limits Accurate I's and O's Monitor urine output Follow BMP in a.m. Heme: History of cervical cancer/endometriosis Normocytic anemia Monitor CBC daily. Follow trends ID: History of HSV History of BV Cystitis/Escherichia coli Received Rocephin in ED. We'll Start Ancef 1 G IV Every 12 Hours for 3 Days a currently day # #3 FEN: Hypokalemia Hypo-magnesium Hypophosphatemia Replaced per ICU electrolyte protocol today. Recheck potassium phosphorus 1800 Currently on normal saline at 100 cc an hour MSK: PT evaluate and treat when appropriate Access - Utilize right subclavian placed 10/[address] Crowe Prophylaxis - GI - Protonix - DVT - SCD/Lovenox level III Stuart Sanders MD Oct 08, 2016 08:08
[2016-10-08] MEDS: MAGNESIUM SULFATE 1 GM PREMIX 100 ML IV SCH ×2 (10:27→12:44)
[2016-10-08] MEDS: MORPHINE SULFATE 4 MG/ML INJ IV PUSH PRN ×2 (10:29→13:43)
[2016-10-08] MEDS ORDERED: MAGNESIUM SULFATE 1 GM PREMIX 100 ML ONE (12:42)
[2016-10-08] MEDS: SODIUM CHLORIDE 0.9% FLUSH 10 ML FLUSH SCH ×2 (12:44→20:32)
--- NOTE | 2016-10-08 14:25 | PD.TRANSFR ---
Transfer Summary Admission Date Oct 05, 2016 at 21:26 Transfer Date: Oct 08, 2016 Admitting Diagnosis status epilepticus Diagnoses: (1) Psychogenic nonepileptic seizure Diagnosis: Principal Significant Findings CT head revealed no acute intracranial planes. EEG negative Transfer Summary/Subjective Please see below Objective Vital Signs Date Time Temp Pulse Resp B/P Pulse Ox O2 Delivery O2 Flow Rate FiO2 10/08/16 12:00 107 10/08/16 08:47 96 Nasal Cannula 3.00 10/08/16 07:10 35 10/08/16 04:00 98.1 16 133/79 Intake and Output 10/07/16 10/07/16 10/07/16 07:59 15:59 23:59 Intake Total 1152 ml 2104 ml 1346 ml Output Total 1450 ml 1325 ml 1975 ml Balance -298 ml 779 ml -629 ml Result Diagram: 10/08/16 0505 10/08/16 0505 Other Results Microbiology Date/Time Procedure Status Source Growth 10/05/16 20:40 Urine Culture - Final Complete Urine Catheterized Urine Escherichia Coli Imaging Last [address] 10/07/16 0600 Signed Impressions: Service Date/Time: Saturday, October 08, 2016 05:31 - CONCLUSION: Normal examination for a patient of this age. Mike Shay MD Chest X-Ray 10/05/162018 Signed Impressions: Service Date/Time: Wednesday, October 05, 2016 20:24 - CONCLUSION: ET tube in good position without significant failure. Board Certified Radiologist. This report was verified electronically. Objective Remarks GENERAL: 31-year-old female, currently orotracheally intubated SKIN: Warm and dry. No rash HEAD: Normocephalic. EYES: No scleral icterus. No injection or drainage. NECK: Supple, trachea midline. No JVD or lymphadenopathy. CARDIOVASCULAR: Regular rate and rhythm with S1, S2 no S4. Without murmurs, gallops, or rubs. RESPIRATORY: Breath sounds equal bilaterally. No accessory muscle use. GASTROINTESTINAL: Abdomen soft, non-tender, nondistended. MUSCULOSKELETAL: No significant peripheral edema. BACK: Nontender without obvious deformity. No CVA tenderness. NEURO: Cranial nerves II through XII grossly intact. Positive gag. Positive corneal reflex. Withdrawals to pain in all 4 extremities Date of Insertion: Oct 06, 2016 Line: Central Venous Catheter Side: Right Location: Subclavian A/P Assessment and Plan Neuro/Psych: Psychogenic nonepileptic seizures Bipolar type I Anxiety/depression History of migraine headache CT head revealed no acute intrarenal findings Followed by Dr. West/neurology Keppra 500 IV every 6 hours and Dilantin 100 mg IV every 8 hours. Loaded with Dilantin ED. Recheck levels in AM 6.6. Follow-up CT head revealed no acute intracranial findings/EEG 10/07 revealed no epileptiform activity. Generalized slowing likely medication induced Per neurology's recommendations CV: Currently on normal saline at 100 cc an hour. Not requiring vasopressors and/or anti-hypertensives Resp: Acute respiratory failure secondary to AMS ACV 28748/5/35 Ventilator bundle As needed DuoNeb every 2 hours. Dyspnea Spontaneous breathing trials after head CT today GI: Hypoalbuminemia OG tube to LIWS. Initiate tube feedings if not extubated today Protonix for GI prophylaxis Micaela-Colace for bowel regimen : Patton catheter for accurate I's and O's in a critically ill patient Endo: Sliding-scale insulin if indicated to maintain euglycemia Follow-up on TSH was within normal limits Renal: Creatinine currently within normal limits Accurate I's and O's Monitor urine output Follow BMP in a.m. Heme: History of cervical cancer/endometriosis Normocytic anemia Monitor CBC daily. Follow trends ID: History of HSV History of BV Cystitis/Escherichia coli Received Rocephin in ED. We'll Start Ancef 1 G IV Every 12 Hours for 3 Days a currently day # #3 FEN: Hypokalemia Hypo-magnesium Hypophosphatemia Replaced per ICU electrolyte protocol today. Recheck potassium phosphorus 1800 Currently on normal saline at 100 cc an hour MSK: PT evaluate and treat when appropriate Access - Utilize right subclavian placed 10/[address] Crowe Prophylaxis - GI - Protonix - DVT - SCD/Lovenox level III Stuart Sanders MD Oct 08, 2016 14:25
[2016-10-08] MEDS: PANTOPRAZOLE SODIUM 40 MG VIAL IV PUSH SCH (14:36)
[2016-10-08] MEDS: PROMETHAZINE INJ 25 MG/ML VIAL IV-CENTRAL PRN (15:00)
[2016-10-08] MEDS ORDERED: PHEN-430 PO (16:54)
[2016-10-08] MEDS ORDERED: ZOLP5TAB3 PO (16:54)
[2016-10-08] MEDS ORDERED: SUMA50TA2 PO (16:54)
[2016-10-08] MEDS ORDERED: ESCI20TA PO (16:54)
[2016-10-08] MEDS ORDERED: HYDR-3583 PO (16:54)
[2016-10-08] MEDS ORDERED: ESCI10TA PO (16:54)
[2016-10-08] MEDS ORDERED: ACETAMINOPHEN 325 MG TAB PO PRN (18:00)
[2016-10-08 18:57] LABS: POTASSIUM 3.3 MEQ/L (3.5-5.1)
[2016-10-08] MEDS ORDERED: GABA800T PO (19:17)
[2016-10-08] MEDS ORDERED: DIPH25CA PO (19:19)
[2016-10-08] MEDS: ACETAMINOPHEN/HYDROcodone 325 MG/5 MG TAB PO PRN (20:32)
[2016-10-08] MEDS: ENOXAPARIN SODIUM 40 MG/0.4 ML SYRINGE SQ SCH (23:57)
[2016-10-09] VITALS: BP 111/59; PULSE 100; RESP 18; TEMP 97.8; O2SAT 93
[2016-10-09] MEDS: SODIUM CHLOR 0.9% 1000 ML INJ 1,000 ML IV SCH
[2016-10-09] MEDS: PROMETHAZINE INJ 25 MG/ML VIAL IV-CENTRAL PRN ×2 (03:36→14:06)
[2016-10-09] MEDS: CHLORHEXIDINE GLUCONATE 2 % 1 PACK (2 CLOTHS) TOP SCH (03:37)
[2016-10-09 04:23] LABS: AUTOMATED NEUTROPHIL # 4.7 TH/MM3 (1.8-7.7); BASOPHIL % 0.6 % (0.0-2.0); EOSINOPHIL # 0.4 TH/MM3 (0-0.4); EOSINOPHIL % 5.5 % (0.0-4.0); HEMATOCRIT 31.4 % (35.0-46.0); HEMO FLAGS DIFF FINAL; LYMPH % 29.7 % (9.0-44.0); LYMPHOCYTE # 2.4 TH/MM3 (1.0-4.8); MEAN CELL VOLUME 88.6 FL (80.0-100.0); MEAN CORPUSCULAR HEMOGLOBIN 30.1 PG (27.0-34.0); MONO % 6.3 % (0.0-8.0); NEUT % 57.9 % (16.0-70.0); PLATELET COUNT 261 TH/MM3 (150-450); RED BLOOD COUNT 3.55 MIL/MM3 (4.00-5.30); RED CELL DISTRIBUTION WIDTH 13.4 % (11.6-17.2); WHITE BLOOD COUNT 8.1 TH/MM3 (4.0-11.0)
[2016-10-09 05:13] LABS: ALT (GPT) 21 U/L (10-53); ANION GAP 7 MEQ/L (5-15); AST (GOT) 23 U/L (15-37); BICARBONATE 25.7 MEQ/L (21.0-32.0); BLOOD UREA NITROGEN 4 MG/DL (7-18); CHLORIDE 111 MEQ/L (98-107); GLOMERULAR FILTRATION RATE 133 ML/MIN (>89); MAGNESIUM 1.9 MG/DL (1.5-2.5); POTASSIUM 3.5 MEQ/L (3.5-5.1); SODIUM (NA) 144 MEQ/L (136-145)
[2016-10-09 05:15] LABS: ALKALINE PHOSPHATASE 69 U/L (45-117); TOTAL BILIRUBIN ADULT 0.3 MG/DL (0.2-1.0)
[2016-10-09] MEDS: levETIRAcetam INJ 500 MG in SODIUM CHLORIDE 0.9% INJ 100 ML IV SCH (05:43)
[2016-10-09 08:00] VITALS: BP 115/59; PULSE 83; RESP 17; TEMP 97.8; O2SAT 94
[2016-10-09] MEDS: FOSPHENYTOIN INJ 100 MGPE in SODIUM CHLORIDE 0.9% INJ 50 ML IV SCH (08:50)
[2016-10-09] MEDS: SODIUM CHLORIDE 0.9% FLUSH 10 ML FLUSH SCH ×2 (08:51→20:49)
[2016-10-09] MEDS: DOCUSATE SODIUM 50 MG/SENNA 8.6 MG TAB PO SCH ×2 (08:51→20:47)
[2016-10-09] MEDS: POTASSIUM PHOSPHATE MONOBASIC 500 MG TAB PO SCH ×2 (08:51→20:47)
[2016-10-09 12:00] VITALS: BP 121/68; PULSE 93; RESP 17; TEMP 98.1; O2SAT 93
[2016-10-09] MEDS ORDERED: LEVE500 PO ×2 (12:44→15:41)
[2016-10-09] MEDS: levETIRAcetam 500 MG TAB PO SCH (13:49)
[2016-10-09] MEDS: ACETAMINOPHEN/HYDROcodone 325 MG/5 MG TAB PO PRN ×2 (14:35→20:48)
[2016-10-09] MEDS ORDERED: K-PHTAB PO (15:41)
--- NOTE | 2016-10-09 15:41 | HHI.DCPOC ---
Discharge Care Plan Diagnosis: (1) Psychogenic nonepileptic seizure Your Health Problems Are: Difficulty with ADL Exercise Tolerance Goals to Promote Your Health * To prevent worsening of your condition and complications * To maintain your health at the optimal level Directions to Meet Your Goals Take your medications as prescribed Follow your dietary instruction Follow activity as directed Keep your appointments as scheduled Take your immunizations and boosters as scheduled If your symptoms worsen call your PCP, if no PCP go to Urgent Care Center or Emergency Room Smoking is Dangerous to Your Health. Avoid second hand smoke Call the 24-hour hour crisis hotline for domestic abuse at Sammy Mancia MD Oct 09, 2016 15:41
[2016-10-09] MEDS ORDERED: ESCITALOPRAM OXALATE 20 MG TAB PO SCH (15:45)
--- NOTE | 2016-10-09 15:49 | HHI.PR ---
Subjective Remarks Consulted by critical care medicine for transfer care medical management. Chart reviewed. Patient was admitted to ICU secondary to seizure and developed acute respiratory failure secondary to encephalopathy. She was intubated and subsequently extubated now tolerating room air. She also was started on IV Cerebryx and Keppra. EEG negative. Per critical care medicine notes, patient has psychogenic nonepileptic seizure. No recurrence of seizure despite subtherapeutic Dilantin levels. Patient reports she is on Keppra 500 mg daily. States she is doing okay complains of slight nausea but no headache, dizziness , numbness and focal weakness. She wants to go home. She also has been treated for Escherichia coli UTI with cefazolin IV. She will request Patton catheter to be discontinued. Objective Vitals Vital Signs Date Time Temp Pulse Resp B/P Pulse Ox O2 Delivery O2 Flow Rate FiO2 10/09/16 12:00 98.1 93 17 121/68 93 10/09/16 08:00 97.8 83 17 115/59 94 10/09/16 00:00 97.8 100 18 111/59 93 10/08/16 20:00 97.5 81 18 123/69 98 10/08/16 18:00 104 10/08/16 16:00 112 10/08/16 16:00 98.9 112 11 134/92 94 I/O 10/08/16 10/08/16 10/08/16 10/09/16 10/09/16 10/09/16 06:59 14:59 22:59 06:59 14:59 22:59 Intake Total 891 ml 1119 ml 1180 ml 1113 ml Output Total 350 ml 1600 ml 1800 ml 300 ml Balance 541 ml -481 ml -620 ml 813 ml Intake Oral 240 ml 120 ml IV Total 891 ml 1119 ml 940 ml 993 ml Output Urine Total 350 ml 1600 ml 1800 ml 300 ml # Bowel Movements 0 0 Result Diagram: 10/09/16 0345 10/09/16344 Imaging Last Impressions Head CT 10/07/16 0600 Signed Impressions: Service Date/Time: Saturday, October 08, 2016 05:31 - CONCLUSION: Normal examination for a patient of this age. Mike Shay MD Chest X-Ray 10/05/16 2019 Signed Impressions: Service Date/Time: Wednesday, October 05, 2016 20:24 - CONCLUSION: ET tube in good position without significant failure. Board Certified Radiologist. This report was verified electronically. Objective Remarks GENERAL: Well-developed, obese in no distress SKIN: Warm and dry. HEAD: Atraumatic. Normocephalic. EYES: Pupils equal and round. No scleral icterus. No injection or drainage. ENT: No nasal bleeding or discharge. Mucous membranes pink and moist. NECK: Trachea midline. No JVD. CARDIOVASCULAR: Regular rate and rhythm. RESPIRATORY: No accessory muscle use. Clear to auscultation. Breath sounds equal bilaterally. GASTROINTESTINAL: Abdomen soft, non-tender, nondistended. MUSCULOSKELETAL: Extremities without clubbing, cyanosis, or edema. No obvious deformities. NEUROLOGICAL: Awake and alert. No obvious cranial nerve deficits. Motor grossly within normal limits. Five out of 5 muscle strength in the arms and legs. Normal speech. PSYCHIATRIC: Appropriate mood and affect; insight and judgment normal. Procedures Central line placement Date of Insertion: Oct 06, 2016 Line: Central Venous Catheter Side: Right Location: Subclavian A/P Problem List: (1) Psychogenic nonepileptic seizure ICD Code: F44.5 Status: Acute Assessment and Plan Patient was admitted to ICU secondary to seizure and developed acute respiratory failure secondary to encephalopathy. She was intubated and subsequently extubated now tolerating room air. She also was started on IV Cerebryx and Keppra. EEG negative. Per critical care medicine notes, patient has psychogenic nonepileptic seizure. No recurrence of seizure despite subtherapeutic Dilantin levels. Patient reports she is on Keppra 500 mg daily. States she is doing okay complains of slight nausea but no headache, dizziness , numbness and focal weakness. She wants to go home. We'll discontinue IV Cerebryx and Keprra and restart home Keppra, seizure precautions She also has been treated for Escherichia coli UTI with cefazolin IV. Discontinue antibiotic as she completed course already. She will request Patton catheter to be discontinued. Normocytic normochromic anemia. Outpatient follow-up History of depression and right lower extremity neuropathy. Restart home medications Discontinue central line Discharge Planning Stable for discharge Sammy Mancia MD Oct 09, 2016 15:48
--- NOTE | 2016-10-09 15:51 | HHI.DS ---
Discharge Summary Admission Date Oct 05, 2016 at 21:26 Discharge Date: Oct 10, 2016 Admitting Diagnosis status epilepticus (1) Psychogenic nonepileptic seizure ICD Code: F44.5 Diagnosis: Principal Procedures Central line placement Brief History - From Admission Young female patient who was brought into the emergency department having had a witnessed seizure at a support group. 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 The people at the support group did not know her and didn't have much information about her. Patient was able to say that she has been taking Keppra and she thought she has missed some doses. She had 6 seizures with EMS call lasting less than a minute described as generalized tonic -clonic. She received 4 mg of IV Ativan with EMS. She had another seizure- like episodes in the emergency department and was intubated by ED attending for an airway protection. CBC/BMP: 10/09/16 0345 10/09/16 0345 Significant Findings Laboratory Tests Test 10/07/16 10/07/16 10/08/16 10/08/16 05:10 18:00 05:05 17:30 White Blood Count 11.3 TH/MM3 (4.0-11.0) Red Blood Count 3.83 MIL/MM3 3.61 MIL/MM3 (4.00-5.30) (4.00-5.30) Hemoglobin 11.3 GM/DL 10.9 GM/DL (11.6-15.3) (11.6-15.3) Hematocrit 33.7 % 31.8 % (35.0-46.0) (35.0-46.0) Neutrophils (%) (Auto) 78.7 % (16.0-70.0) Neutrophils # (Auto) 8.9 TH/MM3 (1.8-7.7) Potassium Level 2.9 MEQ/L 3.4 MEQ/L 3.0 MEQ/L 3.3 MEQ/L (3.5-5.1) (3.5-5.1) (3.5-5.1) (3.5-5.1) Chloride Level 110 MEQ/L 110 MEQ/L (98-107) (98-107) Blood Urea Nitrogen 3 MG/DL (7-18) 3 MG/DL (7-18) Calcium Level 7.8 MG/DL 7.7 MG/DL (8.5-10.1) (8.5-10.1) Phosphorus Level 2.1 MG/DL 1.8 MG/DL 2.2 MG/DL (2.5-4.9) (2.5-4.9) (2.5-4.9) Aspartate Amino Transf 12 U/L (15-37) (AST/SGOT) Albumin 3.0 GM/DL (3.4-5.0) Phenytoin (Dilantin) Level 6.5 MCG/ML 6.7 MCG/ML (10.0-20.0) (10.0-20.0) Test 10/09/16 03:45 Red Blood Count 3.55 MIL/MM3 (4.00-5.30) Hemoglobin 10.7 GM/DL (11.6-15.3) Hematocrit 31.4 % (35.0-46.0) Eosinophils (%) (Auto) 5.5 % (0.0-4.0) Chloride Level 111 MEQ/L (98-107) Blood Urea Nitrogen 4 MG/DL (7-18) Calcium Level 7.8 MG/DL (8.5-10.1) Phosphorus Level 2.4 MG/DL (2.5-4.9) Albumin 2.8 GM/DL (3.4-5.0) Phenytoin (Dilantin) Level 7.4 MCG/ML (10.0-20.0) Imaging Last Impressions Head CT 10/07/16 0600 Signed Impressions: Service Date/Time: Saturday, October 08, 2016 05:31 - CONCLUSION: Normal examination for a patient of this age. Mike Shay MD Chest X-Ray 10/05/16 2019 Signed Impressions: Service Date/Time: Wednesday, October 05, 2016 20:24 - CONCLUSION: ET tube in good position without significant failure. Board Certified Radiologist. This report was verified electronically. PE at Discharge GENERAL: Well-developed, obese in no distress SKIN: Warm and dry. HEAD: Atraumatic. Normocephalic. EYES: Pupils equal and round. No scleral icterus. No injection or drainage. ENT: No nasal bleeding or discharge. Mucous membranes pink and moist. NECK: Trachea midline. No JVD. CARDIOVASCULAR: Regular rate and rhythm. RESPIRATORY: No accessory muscle use. Clear to auscultation. Breath sounds equal bilaterally. GASTROINTESTINAL: Abdomen soft, non-tender, nondistended. MUSCULOSKELETAL: Extremities without clubbing, cyanosis, or edema. No obvious deformities. NEUROLOGICAL: Awake and alert. No obvious cranial nerve deficits. Motor grossly within normal limits. Five out of 5 muscle strength in the arms and legs. Normal speech. PSYCHIATRIC: Appropriate mood and affect; insight and judgment normal. Transfer Summary Please see below Hospital Course Patient was admitted to ICU secondary to seizure and developed acute respiratory failure secondary to encephalopathy. She was intubated and subsequently extubated now tolerating room air. She also was started on IV Cerebryx and Keppra. EEG negative. Per critical care medicine notes, patient has psychogenic nonepileptic seizure. No recurrence of seizure despite subtherapeutic Dilantin levels. Discontinued IV Cerebryx. Patient reports she is on Keppra 500 mg daily increased to BID hx epileptic sz. She also has been treated for Escherichia coli UTI with cefazolin IV. Discontinue antibiotic as she completed course already. Normocytic normochromic anemia can be followed outpatient Pt Condition on Discharge: Stable Discharge Disposition: Discharge Home Discharge Time: > 30 minutes Discharge Instructions DIET: Follow Instructions for: As Tolerated, No Restrictions Activities you can perform: Regular-No Restrictions Activities to Avoid: Driving Other Activity Instructions: Swimming alone, carrying young children and climbing heights Follow up Referrals: Neurology - 1 Week PCP Follow-up - 1 Week New Medications: Levetiracetam (Keppra) 500 Mg Tab 500 MG PO Q12H Control Seizures #60 TAB Potassium Phosphate Monobasic (K-Phos) 500 Mg Tab 1000 MG PO Q12HR Electrolyte Replacement #6 TAB Continued Medications: Escitalopram (Escitalopram) 10 Mg Tab 10 MG PO DAILY #30 Ref 0 TAB Escitalopram (Escitalopram) 20 Mg Tab 20 MG PO DAILY #30 Ref 0 TAB Gabapentin (Gabapentin) 800 Mg Tab 800 MG PO TID #90 Ref 0 TAB Hydrocodone-Acetaminophen (Hydrocodone-Acetaminophen) 10-325 mg Tab 1 TAB PO Q6H PRN PAIN Ref 0 TAB Sumatriptan (Sumatriptan) 50 Mg Tab 50 MG PO ONCE If a satisfactory response has not been obtained at 2 hours, a second dose may be administered PRN MIGRAINE HEADACHE Ref 0 TAB Additional Information I spent 35 minutes [id number] with the patient or on the brooke discussing the patient's disposition, prognosis, and plan of care with patient's caregivers. Over half the time spent was devoted to counseling the patient regarding placement in coordinating care with caregivers and case management. Sammy Mancia MD Oct 09, 2016 15:51
[2016-10-09 16:00] VITALS: BP 128/84; PULSE 92; RESP 17; TEMP 99; O2SAT 99
[2016-10-09] MEDS: GABAPENTIN 400 MG CAP PO SCH (16:47)
[2016-10-09] MEDS: ESCITALOPRAM OXALATE 10 MG TAB PO SCH (16:48)
[2016-10-09 20:00] VITALS: BP 124/78; PULSE 85; RESP 19; TEMP 98.6; O2SAT 97
[2016-10-09] MEDS: ENOXAPARIN SODIUM 40 MG/0.4 ML SYRINGE SQ SCH (23:13)
[2016-10-09] MEDS ORDERED: diphenhydrAMINE HCL 25 MG CAP PO ONE (23:15)
[2016-10-10] VITALS: BP 115/60; PULSE 77; RESP 18; TEMP 98.1; O2SAT 96
[2016-10-10] MEDS: levETIRAcetam 500 MG TAB PO SCH (02:34)
[2016-10-10] MEDS: ACETAMINOPHEN/HYDROcodone 325 MG/5 MG TAB PO PRN ×2 (02:35→08:40)
[2016-10-10] MEDS: CHLORHEXIDINE GLUCONATE 2 % 1 PACK (2 CLOTHS) TOP SCH (02:35)
[2016-10-10 08:00] VITALS: BP 111/55; PULSE 67; RESP 17; TEMP 96.6; O2SAT 97
[2016-10-10] MEDS: POTASSIUM PHOSPHATE MONOBASIC 500 MG TAB PO SCH (08:40)
[2016-10-10] MEDS: GABAPENTIN 400 MG CAP PO SCH (08:40)
[2016-10-10] MEDS: ESCITALOPRAM OXALATE 10 MG TAB PO SCH (08:40)
[2016-10-10] MEDS: DOCUSATE SODIUM 50 MG/SENNA 8.6 MG TAB PO SCH (08:41)
[2016-10-10] MEDS: SODIUM CHLORIDE 0.9% FLUSH 10 ML FLUSH SCH (08:42)
--- NOTE | 2016-10-10 10:25 | HHI.PR ---
Review/Management Diagnosis sz vs pseudo sz---controlled. Plan change keppra to 500 mg po bid ok form neurology standpoint to dc home. Diagnosis/Plan: Subjective Subjective Comments No acute events reported No further seizures/pseudoseizures She states in the past she has been diagnosed with epileptic seizures as well as nonepileptic pseudo seizures. Active Medications Current Medications Medications (Trade) Dose Ordered Sig/David Route Start Time Stop Time Status Last Admin (NS Flush) 2 ml UNSCH PRN .XX 10/05/16 22:30 10/08/16 12:44 (NS Flush) 2 ml BID .XX 10/06/16 09:00 10/10/16 08:42 (Lovenox Inj) 40 mg Q24H SQ 10/05/16 23:00 10/09/16 23:13 Miscellaneous Information 1 Q361D XX 10/05/16 22:30 (Chlorhexidine 2% Cloth) 3 pack Taper DAILY@04 TOP 10/06/16 04:00 10/02/17 03:59 10/08/16 04:00 (Chlorhexidine 2% Cloth) 3 pack UNSCH PRN TOP 10/05/16 22:30 (Micaela-Colace) 1 tab BID PO 10/06/16 09:00 10/10/16 08:41 (Milk Of Magnesia Liq) 30 ml Q12H PRN PO 10/05/16 22:30 (Senokot) 17.2 mg Q12H PRN PO 10/05/16 22:30 (Dulcolax Supp) 10 mg DAILY PRN RECTAL 10/05/16 22:30 (Lactulose Liq) 30 ml DAILY PRN PO 10/05/16 22:30 (Phenergan Inj) 12.5 mg Q6H PRN IV-CENTRAL 10/08/16 14:45 10/09/16 14:06 ([place] 5-325 Mg) 1 tab Q6H PRN PO 10/08/16 18:00 10/10/16 08:40 (Tylenol) 650 mg Q6H PRN PO 10/08/16 18:00 (K-Phos) 1,000 mg Q12HR PO 10/09/16 09:00 10/10/16 08:40 (Keppra) 500 mg Q12H PO 10/09/16 14:00 10/10/16 02:34 (Lexapro) 30 mg DAILY PO 10/09/16 15:45 10/10/16 08:40 (Neurontin) 800 mg TID PO 10/09/16 18:00 10/10/16 08:40 Allergies Allergies Coded Allergies Erythromycin (Verified Allergy, Mild, Fever, 10/08/16) Reglan (Verified Allergy, Mild, Nausea/Vomiting, 10/08/16) Toradol (Verified Adverse Reaction, Intermediate, 10/08/16) Zofran (Verified Adverse Reaction, Mild, Dizziness, 10/08/16) Exam I&O / VS 10/09/16 10/09/16 10/10/16 15:00 23:00 07:00 Intake Total 970 ml 240 ml 240 ml Output Total 550 ml 100 ml Balance 420 ml 140 ml 240 ml Intake Oral 720 ml 240 ml 240 ml IV Total 250 ml 0 ml 0 ml Output Urine Total 550 ml 100 ml # Voids 2 3 # Bowel Movements 0 2 Vital Signs Date Time Temp Pulse Resp B/P Pulse Ox O2 Delivery O2 Flow Rate FiO2 10/10/16 08:00 96.6 67 17 111/55 97 10/10/16 00:00 98.1 77 18 115/60 96 10/09/16 21:48 18 10/09/16 20:00 98.6 85 19 124/78 97 10/09/16 16:00 99.0 92 17 128/84 99 10/09/16 12:00 98.1 93 17 121/68 93 Exam Comments alert, oriented speech normal CN 2-12 normal MOTOR--no focal deficits. Objective Micro and Labs Date/Time Procedure Status Source Growth 10/05/16 20:40 Urine Culture - Final Complete Urine Catheterized Urine Escherichia Coli Keaton [place] PhD Oct 10, 2016 10:24
[2016-10-10] MEDS ORDERED: LORazepam 2 MG/ML VIAL ONE (10:43)
--- NOTE | 2016-10-10 11:10 | PD.RAD ---
Post Procedure Progress Note Pre Procedure Diagnosis: (1) Central line complication Post Procedure Diagnosis: (1) Central line complication Procedure Date: Oct 10, 2016 Supervising Radiologist: Connor Chu Proceduralist/Assist: Gina Sauceda, RT(R), lAie Carbajal, RT(R) Anesthesia: Other Plan of Activity Patient to Unit: Nursing Unit Patient Condition: Good Additional Comments: removed right subclavian line over guidewire with fluro guidance. See PACS Report for procedural detail/treatment Connor Chu MD Oct 10, 2016 11:10
--- NOTE | 2016-10-10 11:46 | RADRPT ---
EXAM DATE/TIME: 10/10/2016 11:00 [facility] COMPARISON: No previous studies available for comparison. INDICATIONS : Patient with a history of seizures no longer needs central line unable to remove ce ntral line at bedside. Therefore, a fluoroscopic upper removal has been requested. MEDICAL HISTORY : Seizures Bipolar SURGICAL HISTORY : none ENCOUNTER: Initial ACUITY: 4-6 days PAIN SCORE: 5/10 LOCATION: Back FLUORO TIME: 0.1 minutes IMAGE SERIES: 1 TECH NOTE; Right central line removedMAURICIO VASQUEZ MR#[id number] :86 Exam date/desc:October 09, 2016FLOUROSCOPY UP TO ONE HOUR PROCEDURE : 1. fluoroscopic guidance 2. removal of right subclavian central line over guidewire The risks, benefits and alternatives to the procedure were explained and verbal and written consent w as obtained. The site was prepped in sterile fashion. Full sterile technique was used, including ca p, mask, sterile gloves and gown and a large sterile sheet. Hand hygiene and 2% chlorhexidine prep w as utilized per protocol for cutaneous antisepsis with appropriate dry time for site. The skin and s ubcutaneous tissues were infiltrated with local anesthetic solution. Fluoroscopic evaluation of the subclavian catheter demonstrated catheter to be in good position and i ntact. Was advanced through the catheter and placed in the IVC under fluoroscopic guidance. Catheter was then removed over the guidewire and noted to be intact. Guidewire was then removed. Hemostasis wa s obtained with manual compression. Conscious sedation was performed with the prescribed dosages and duration as above in the presence of an independent trained radiology nurse to assist in the monitoring of the patient. EKG and oximetry remained stable throughout the procedure. CONCLUSION: 1. Uneventful fluoroscopic guided removal of right subclavian catheter. Connor Chu MD on October 10, 2016 at 11:43 Board Certified Radiologist. This report was verified electronically.
[2016-10-10 12:00] VITALS: BP 131/74; PULSE 85; RESP 17; TEMP 98; O2SAT 99
== END 2016-10-10 12:53 | disposition home or self-care (01) | DRG 880 ==
LOC: NEPE 19:38 → NEDA 21:26 → EDBD 21:26 → HIME 10-06 01:45 → N07B 10-08 18:17
PROVIDERS: ADMIT Internal Medicine; ATTEND Internal Medicine
PROC: 0BH17EZ Insertion of Endotracheal Airway into Trachea, Via Natural or Artificial Opening (ICD-10-PCS; principal; 2016-10-05)
PROC: 5A1945Z Respiratory Ventilation, 24-96 Consecutive Hours (ICD-10-PCS; 2016-10-05)
PROC: 05H533Z Insertion of Infusion Device into Right Subclavian Vein, Percutaneous Approach (ICD-10-PCS; 2016-10-06)
DX: F44.5 Conversion disorder with seizures or convulsions (principal); J96.00 Acute respiratory failure, unspecified whether with hypoxia or hypercapnia; N39.0 Urinary tract infection, site not specified; F31.9 Bipolar disorder, unspecified; B96.20 Unspecified Escherichia coli [E. coli] as the cause of diseases classified elsewhere; D64.9 Anemia, unspecified; G43.909 Migraine, unspecified, not intractable, without status migrainosus; F41.9 Anxiety disorder, unspecified; E88.09 Other disorders of plasma-protein metabolism, not elsewhere classified; E87.6 Hypokalemia; E83.42 Hypomagnesemia; E83.39 Other disorders of phosphorus metabolism
CPT/HCPCS: 31500; 36600; 51702; 70450; 71010; 76937; 80048; 80053; 80177; 80185; 80307; 81001; 82140; 82150; 82550; 82805; 82948; 83605; 83690; 83735; 84100; 84132; 84443; 84702; 84703; 85025; 85027; 87077; 87086; 87186; 87641; 93005; 94002; 94003; 94150; 95819; 96365; 96366; 96374; 96375; C1769; C9113; J0690; J0696; J1170; J1650; J1953; J2060; J2250; J2270; J2550; J3010; J3475; J3480; J7030; J7050; Q2009